=== PATIENT | female | born 1970 | race Caucasian/White ===

== ENCOUNTER 2017-09-19 16:48 | Inpatient (IN) ==
[2017-09-19 18:02] LABS: Hematocrit 35.1 VOL% (35.7-47.0); Hemoglobin 11.7 GM/DL (12.0-16.0); Immature Granulocytes % 0.5 %; Immature Granulocytes Absolute 0.01 #; Lymphocytes # 0.5 10*3/uL (1.4-4.0); Lymphocytes % 23.6 % (21.3-54.2); Mean Corpuscular HGB Conc 33.3 GM/DL (32-36); Mean Corpuscular Hemoglobin 33 PG (27-34); Mean Corpuscular Volume 98.9 FL (87-102); Mean Platelet Volume 9.7 FL (9.6-12.0); Monocytes # 0.2 10*3/uL (0.11-0.8); Monocytes % 8.9 % (1.7-12.7); Neutrophils # 1.3 10*3/uL (1.4-7.4); Platelet Count 118 T/CUMM (130-400); Red Blood Count 3.55 MC/CUMM (3.8-5.5); Red Cell Distribution Width 16.8 % (9.3-17.3)
[2017-09-19 18:13] LABS: PT Patient Result 10.1 SECS
[2017-09-19 18:16] LABS: Calcium 8.5 MG/DL (8.5-10.1); Osmolality,Calculated 283.1 MOS/KG (273-304); Potassium 3.4 MMOL/L (3.5-5.1)
[2017-09-19 19:10] LABS: Troponin I Only 0.913 NG/ML (0.00-0.045)
[2017-09-19] MEDS ORDERED: ONDANSETRON 4 MG/2 ML VIAL IV PRN (20:00)
[2017-09-19] MEDS ORDERED: ALBUTEROL 2.5 MG/3 ML NEB RESP TX PRN (20:00)
[2017-09-19 22:03] LABS: PT Patient Result 10.4 SECS; Partial Thromboplastin Time 24.7 SECS (0-40)
[2017-09-19] MEDS: HEPARIN DRIP 25,000 UNITS/500 ML PREMIX IV SCH (22:51)
[2017-09-20 04:48] LABS: Basophils % 1.2 % (0.0-0.8); Eosinophils % 1.8 % (0.00-10.9); Hematocrit 30.9 VOL% (35.7-47.0); Immature Granulocytes % 0.6 %; Immature Granulocytes Absolute 0.01 #; Lymphocytes # 0.5 10*3/uL (1.4-4.0); Lymphocytes % 26.9 % (21.3-54.2); Mean Corpuscular HGB Conc 32.4 GM/DL (32-36); Mean Corpuscular Hemoglobin 34 PG (27-34); Mean Platelet Volume 9.5 FL (9.6-12.0); Monocytes # 0.2 10*3/uL (0.11-0.8); Monocytes % 10.5 % (1.7-12.7); Platelet Count 110 T/CUMM (130-400); Red Blood Count 2.97 MC/CUMM (3.8-5.5); Red Cell Distribution Width 17.2 % (9.3-17.3); White Blood Count 1.7 T/CUMM (4-12)
[2017-09-20 05:14] LABS: Eosinophils 2 % (0-10); Hypochromasia 1+; Lymphocytes 16 % (20-55); Platelet Estimate Decreased; Segmented Neutrophils 72 % (50-85); Total Cells Counted 100
[2017-09-20 05:19] LABS: Albumin 2.3 G/DL (3.4-5.0); Bilirubin,Total 0.4 MG/DL (0.2-1.0); Calcium 8.3 MG/DL (8.5-10.1); Potassium 3.5 MMOL/L (3.5-5.1); Total Protein 5.3 G/DL (6.4-8.3)
[2017-09-20] MEDS: LETROZOLE 2.5 MG TABLET PO SCH (08:55)
[2017-09-20] MEDS: ABEMACICLIB PO SCH ×2 (08:55→20:53)
[2017-09-20] MEDS: PANTOPRAZOLE 40 MG TABLET PO SCH (08:55)
[2017-09-20] MEDS: HEPARIN DRIP 25,000 UNITS/500 ML PREMIX IV SCH ×2 (11:30→22:08)
[2017-09-21] MEDS: HEPARIN DRIP 25,000 UNITS/500 ML PREMIX IV SCH (03:52)
[2017-09-21 05:39] LABS: Basophils % 1.2 % (0.0-0.8); Eosinophils % 2.5 % (0.00-10.9); Hematocrit 29.2 VOL% (35.7-47.0); Hemoglobin 9.7 GM/DL (12.0-16.0); Immature Granulocytes % 0.6 %; Immature Granulocytes Absolute 0.01 #; Lymphocytes # 0.5 10*3/uL (1.4-4.0); Lymphocytes % 29.2 % (21.3-54.2); Mean Corpuscular HGB Conc 33.2 GM/DL (32-36); Mean Corpuscular Hemoglobin 34 PG (27-34); Mean Corpuscular Volume 103.5 FL (87-102); Mean Platelet Volume 9.3 FL (9.6-12.0); Monocytes # 0.2 10*3/uL (0.11-0.8); Monocytes % 9.3 % (1.7-12.7); Neutrophils # 0.9 10*3/uL (1.4-7.4); Neutrophils % 57.2 % (38.7-73.9); Platelet Count 101 T/CUMM (130-400); Red Blood Count 2.82 MC/CUMM (3.8-5.5); Red Cell Distribution Width 17.6 % (9.3-17.3); White Blood Count 1.6 T/CUMM (4-12)
[2017-09-21 05:57] LABS: Macrocytosis 1+
[2017-09-21 05:58] LABS: Platelet Estimate Decreased
[2017-09-21 06:04] LABS: Eosinophils 2 % (0-10); Lymphocytes 24 % (20-55); Segmented Neutrophils 64 % (50-85); Total Cells Counted 100
[2017-09-21 06:05] LABS: Atypical Lymphocytes Few
[2017-09-21 06:18] LABS: Bilirubin,Total 0.7 MG/DL (0.2-1.0); Calcium 8.1 MG/DL (8.5-10.1); Potassium 3.7 MMOL/L (3.5-5.1); Total Protein 5.3 G/DL (6.4-8.3)
[2017-09-21] MEDS: RIVAROXABAN 15 MG TABLET PO SCH ×2 (08:32→17:44)
[2017-09-21] MEDS: ABEMACICLIB PO SCH ×2 (08:33→20:18)
[2017-09-21] MEDS: PANTOPRAZOLE 40 MG TABLET PO SCH (08:33)
[2017-09-21] MEDS: LETROZOLE 2.5 MG TABLET PO SCH (08:33)
[2017-09-22 04:44] LABS: Basophils % 1.2 % (0.0-0.8); Eosinophils % 2.5 % (0.00-10.9); Hematocrit 28.6 VOL% (35.7-47.0); Hemoglobin 9.4 GM/DL (12.0-16.0); Immature Granulocytes % 0.6 %; Immature Granulocytes Absolute 0.01 #; Lymphocytes # 0.5 10*3/uL (1.4-4.0); Lymphocytes % 28.4 % (21.3-54.2); Mean Corpuscular HGB Conc 32.9 GM/DL (32-36); Mean Corpuscular Hemoglobin 33 PG (27-34); Mean Corpuscular Volume 101.1 FL (87-102); Mean Platelet Volume 9.6 FL (9.6-12.0); Monocytes # 0.2 10*3/uL (0.11-0.8); Monocytes % 9.3 % (1.7-12.7); NRBC # 0.02 10*3/uL; Neutrophils # 0.9 10*3/uL (1.4-7.4); Platelet Count 115 T/CUMM (130-400); Red Blood Count 2.83 MC/CUMM (3.8-5.5); Red Cell Distribution Width 17.4 % (9.3-17.3); White Blood Count 1.6 T/CUMM (4-12)
[2017-09-22 05:26] LABS: Band Neutrophils 1 % (0-10); Eosinophils 3 % (0-10); Lymphocytes 22 % (20-55); Macrocytosis 1+; Segmented Neutrophils 64 % (50-85); Total Cells Counted 100
[2017-09-22 05:27] LABS: Platelet Estimate Adequate; Polychromasia Slight
[2017-09-22] MEDS: LETROZOLE 2.5 MG TABLET PO SCH (08:25)
[2017-09-22] MEDS: RIVAROXABAN 15 MG TABLET PO SCH (08:25)
[2017-09-22] MEDS: PANTOPRAZOLE 40 MG TABLET PO SCH (08:26)
[2017-09-22] MEDS: ABEMACICLIB PO SCH (08:26)
[2017-09-22 09:26] VITALS: BP 114/51
[2017-09-22] MEDS ORDERED: HEPARIN LOCK FLUSH 500 UNIT/5 ML SYRINGE IV ONE (11:57)
== END 2017-09-22 13:00 | disposition home or self-care (01) | DRG 175 ==
LOC: N.ED 16:48 → N.EDINP 20:00 → SUATTDRO 20:00 → N.CC 22:25 → N.4E 09-21 11:36
PROVIDERS: ADMIT Internal Medicine; ATTEND Family Medicine

== ENCOUNTER 2019-05-15 19:16 | Observation (INO) ==
[2019-05-15] MEDS ORDERED: ONDANSETRON 4 MG/2 ML VIAL IV STA ×2 (19:40→22:14)
[2019-05-15 19:58] LABS: Basophils % 0.6 % (0.0-0.8); Eosinophils # 0.1 10*3/uL (0.0-0.87); Eosinophils % 2.2 % (0.00-10.9); Hemoglobin 12.5 GM/DL (12.0-16.0); Immature Granulocytes % 0.3 %; Immature Granulocytes Absolute 0.01 #; Lymphocytes # 1.4 10*3/uL (1.4-4.0); Lymphocytes % 44.6 % (21.3-54.2); Mean Corpuscular HGB Conc 32.9 GM/DL (32-36); Mean Corpuscular Volume 113.4 FL (87-102); Mean Platelet Volume 8.8 FL (9.6-12.0); Monocytes % 18.8 % (1.7-12.7); Neutrophils % 33.5 % (38.7-73.9); Platelet Count 212 T/CUMM (130-400); Red Blood Count 3.35 MC/CUMM (3.8-5.5); Red Cell Distribution Width 13.4 % (9.3-17.3); White Blood Count 3.1 T/CUMM (4-12)
[2019-05-15] MEDS ORDERED: DEXAMETHASONE 10 MG/1 ML VIAL ONE (20:04)
[2019-05-15] MEDS ORDERED: DEXAMETHASONE 4 MG/1 ML VIAL IV STA (20:05)
[2019-05-15 20:12] LABS: INR 1.3; PT Patient Result 13.4 SECS (9.8-11.9); Partial Thromboplastin Time 35.2 SECS (23.9-33.8)
[2019-05-15 20:22] LABS: Anisocytosis 1+; Eosinophils 2 % (0-10); Lymphocytes 48 % (20-55); Macrocytosis 1+; Platelet Estimate Normal; Reactive Lymphocytes 1+; Segmented Neutrophils 32 % (50-85); Total Cells Counted 100
[2019-05-15 20:23] LABS: Alanine Aminotransferase 32 U/L (13-56); Albumin 3.4 G/DL (3.4-5.0); Alkaline Phosphatase 127 U/L (45-117); Aspartate Amino Transferase 31 U/L (0-37); Bilirubin,Total < 0.39 MG/DL (0.2-1.0); Blood Urea Nitrogen 13 MG/DL (7-18); Calcium 9.7 MG/DL (8.5-10.1); Estimated Glom Filtration Rate 101 ML/MIN; Ferritin 301.7 ng/ml (8-252); Glucose 103 MG/DL (74-106); Osmolality,Calculated 280.3 MOS/KG (273-304); Total Protein 6.9 G/DL (6.4-8.3); Troponin I < 0.015 NG/ML (0.00-0.045)
[2019-05-15 20:27] LABS: Apearance,Urine CLEAR (Clear); Bilirubin,Urine Negative (Negative); Blood, Urine Moderate mg/dL (Negative); Glucose,Urine (UA) Negative (Negative); Ketones,Urine Negative (Negative); Mucus,Urine Occasional /LPF (Occasional); Nitrite,Urine Negative (Negative); Protein,Urine Negative; RBC,Urine 1 /HPF (0-4); Squamous Epithelial Cell,Urine Occasional /HPF (0-10); Urine Color Yellow (Yellow); Urine Specific Gravity 1.013 (1.001-1.035); Urine Urobilinogen < 2.0 EU/DL (0.2-1.0); WBC,Urine 1 /HPF (0-6)
[2019-05-15 20:47] LABS: Barbiturates Screen,Urine Negative (Negative); Benzodiazepines Screen,Urine Negative (Negative); Cannabinoid Screen,Urine Negative (Negative); Opiate Screen,Urine Negative (Negative); Phencyclidine Screen,Urine Negative (Negative)
[2019-05-16] MEDS ORDERED: ONDANSETRON 4 MG/2 ML VIAL IV PRN (00:29)
[2019-05-16] MEDS: ACETAMINOPHEN 325 MG TABLET PO PRN ×2 (00:43→11:00)
[2019-05-16] MEDS: SODIUM CHLORIDE 0.9% 1,000 ML IV SCH ×2 (00:47→16:20)
[2019-05-16] MEDS: DEXAMETHASONE 4 MG/1 ML VIAL IV SCH ×3 (04:33→20:47)
[2019-05-16 05:43] LABS: Hematocrit 36.6 VOL% (35.7-47.0); Hemoglobin 12.1 GM/DL (12.0-16.0); Immature Granulocytes % 0.4 %; Immature Granulocytes Absolute 0.02 #; Lymphocytes # 0.6 10*3/uL (1.4-4.0); Lymphocytes % 12.6 % (21.3-54.2); Mean Corpuscular HGB Conc 33.1 GM/DL (32-36); Mean Corpuscular Volume 109.6 FL (87-102); Mean Platelet Volume 9.2 FL (9.6-12.0); Monocytes % 1.8 % (1.7-12.7); Neutrophils % 85.2 % (38.7-73.9); Platelet Count 202 T/CUMM (130-400); Red Blood Count 3.34 MC/CUMM (3.8-5.5); Red Cell Distribution Width 13.2 % (9.3-17.3); White Blood Count 4.5 T/CUMM (4-12)
[2019-05-16 06:05] LABS: Calcium 9.3 MG/DL (8.5-10.1); Osmolality,Calculated 281.4 MOS/KG (273-304)
[2019-05-16] MEDS ORDERED: DEXAMETHASONE 10 MG/1 ML VIAL IV SCH (09:00)
[2019-05-17] MEDS: DEXAMETHASONE 4 MG/1 ML VIAL IV SCH (03:18)
[2019-05-17] MEDS: SODIUM CHLORIDE 0.9% 1,000 ML IV SCH (06:39)
[2019-05-17] MEDS ORDERED: HEPARIN LOCK FLUSH 500 UNIT/5 ML SYRINGE IV ONE (09:46)
[2019-05-17 12:16] VITALS: BP 112/74
== END 2019-05-17 12:18 | disposition home or self-care (01) ==
LOC: N.EDINP 19:16 → N.ED 19:16 → SUATTDRO 23:15 → N.EDINP 23:59 → N.TELES 05-16 00:35
PROVIDERS: ADMIT Internal Medicine; ATTEND Family Medicine